=== PATIENT | female | born 1995 | race Caucasian/White ===

== ENCOUNTER 2017-12-24 04:19 | Emergency (ER) | payer OTHER ==
[~2017-12-24] VITALS: Ht 165.1 cm; Wt 72.6 kg
== END 2017-12-24 05:06 | disposition home or self-care (01) ==
LOC: M.ERS 04:19
DX: S63.591A Other specified sprain of right wrist, initial encounter (principal); F17.200 Nicotine dependence, unspecified, uncomplicated; Z88.1 Allergy status to other antibiotic agents; W10.8XXA Fall (on) (from) other stairs and steps, initial encounter; Y93.89 Activity, other specified; Y92.89 Other specified places as the place of occurrence of the external cause; Y99.8 Other external cause status

== ENCOUNTER 2019-02-22 14:03 | Emergency (ER) | payer OTHER, MEDICAID ==
[~2019-02-22] VITALS: Ht 165.1 cm; Wt 79.8 kg
[2019-02-22] MEDS ORDERED: IBUPROFEN 800800 M1 PO (14:33)
[2019-02-22] MEDS ORDERED: NORCO 5-325 TA1 EAC1 PO (14:33)
[2019-02-22] MEDS ORDERED: CENTANY30 GM TOP (14:33)
[2019-02-22 14:57] VITALS: BP 139/93
== END 2019-02-22 14:45 | disposition home or self-care (01) ==
LOC: M.ERS 14:03
DX: T23.201A Burn of second degree of right hand, unspecified site, initial encounter (principal); T31.0 Burns involving less than 10% of body surface; Z88.1 Allergy status to other antibiotic agents; Z88.5 Allergy status to narcotic agent; X12.XXXA Contact with other hot fluids, initial encounter; Y93.89 Activity, other specified; Y92.89 Other specified places as the place of occurrence of the external cause; Y99.8 Other external cause status